=== PATIENT | female | born 1985 | race Caucasian/White ===

== ENCOUNTER 2021-02-13 15:30 | Outpatient (REF) | payer SELFPAY ==
[2021-02-14 08:08] LABS: ~Hepatitis B Surface Antibody REACTIVE (Nonreactive)
[2021-02-16 14:46] LABS: TS Negative Control Passed; TS Panel A 0; TS Panel B 0; TS Positive Control Passed; TSpotTB Negative (SeeBelow)
== END 2021-02-13 15:31 | disposition home or self-care (01) ==
LOC: HO.LNP 15:30
PROVIDERS: Visit Provider Internal Medicine
DX: Z02.1 Encounter for pre-employment examination (principal)
CPT/HCPCS: 86481; 86706; 86735; 86762; 86765; 86787

== ENCOUNTER 2021-07-27 12:49 | Outpatient (REF) | payer OTHER, SELFPAY ==
--- NOTE | ~2021-07-27 | XR_ITS ---
EXAMINATION: XR PELVIS CLINICAL INFORMATION: Low back pain COMPARISON: None TECHNIQUE: AP view of the pelvis. FINDINGS: There is bilateral sacralization of L5 vertebra visualized bilateral hip joints, SI joints and the pelvic bones are unremarkable. There is a IUD noted in the pelvis. The soft tissues are normal. XR/XR pelvis 1-2V IMPRESSION: Bilateral sacralization of L5 vertebra. No other bony abnormality seen.
== END 2021-07-27 12:50 | disposition home or self-care (01) ==
LOC: HO.XRAY 12:49
PROVIDERS: Visit Provider Nurse Practitioner Family
DX: M54.50 Low back pain, unspecified (principal)
CPT/HCPCS: 72170

== ENCOUNTER → 2021-08-09 14:36 | Outpatient (BNVA) | payer OTHER, SELFPAY | PROVIDERS: Visit Provider Nurse Practitioner Family ==

== ENCOUNTER 2021-08-10 07:44 | Outpatient (REF) | payer OTHER, SELFPAY ==
[2021-08-10 08:07] LABS: MANUAL DIFF FLAG NO
[2021-08-10 08:16] LABS: Basophils Absolute Auto 0.1 X10*3/uL (0.0-0.2); Basophils Percent Auto 1.5 % (0-2); Eosinophils Absolute Auto 0.1 X10*3/uL (0.0-0.4); Hematocrit 39.7 % (37.0-47.0); Imm Gran Abs Auto 0.01 X10*3/uL (0.00-0.03); Imm Gran Pct Auto 0.2 % (0.0-0.4); Lymphocytes Absolute Auto 1.7 X10*3/uL (1.2-4.9); Lymphocytes Percent Auto 28.1 % (20-40); Mean Corpuscular HGB Conc 32.7 g/dl (31.0-35.0); Mean Corpuscular Hemoglobin 29.1 pg (27.0-33.0); Mean Corpuscular Volume 88.8 fL (80.0-98.0); Mean Platelet Volume 9.7 fL (9.4-12.3); Monocytes Absolute Auto 0.4 X10*3/uL (0.1-1.2); Monocytes Percent Auto 6.1 % (2-11); Neutrophils Absolute Auto 3.8 x10*3/uL (2.0-8.3); Neutrophils Percent Auto 62.1 % (45-73); Platelet Count 265 X10*3/uL (160-400); Red Blood Count 4.47 X10*6/uL (4.20-5.50); Red Cell Distribution Width 12.5 % (11.0-16.0); White Blood Count 6.1 X10*3/uL (4.8-10.8)
[2021-08-10 08:53] LABS: Anion Gap 11 (12-20); Blood Urea Nitrogen 13 mg/dL (9-16); Calcium 9.6 mg/dL (8.4-10.2); Carbon Dioxide 27 mmol/L (22-29); Chloride 104 mmol/L (96-108); Cholesterol 169 mg/dL; Estimated Glomerular Filt Rate > 60; Glucose Fasting 100 mg/dL (60-99); HDL Cholesterol 62 mg/dL; LDL Cholesterol Calculated 95 mg/dl; Potassium 4.6 mmol/L (3.3-5.1); Sodium 137 mmol/L (135-145); Triglycerides 62 mg/dL
[2021-08-10 09:15] LABS: Thyroid Stimulating Hormone 0.91 uIU/mL (0.32-4.0)
[2021-08-10 09:16] LABS: TSH reflex Free T4 0.92 uIU/mL (0.32-4.0)
== END 2021-08-10 07:45 | disposition home or self-care (01) ==
LOC: HO.LAB 07:44
PROVIDERS: Visit Provider Nurse Practitioner Family
DX: Z01.818 Encounter for other preprocedural examination (principal); R53.83 Other fatigue
CPT/HCPCS: 36415; 80048; 80061; 84443; 85025

== ENCOUNTER 2021-08-10 16:29 | Outpatient (REF) | payer OTHER, SELFPAY ==
--- NOTE | ~2021-08-10 | MR_ITS ---
EXAMINATION: MR LUMBAR SPINE WITHOUT CONTRAST CLINICAL INFORMATION: Low back pain. COMPARISON: No relevant prior imaging. TECHNIQUE: MRI of the lumbar spine was obtained using routine sequences without contrast. FINDINGS: There is transitional spinal anatomy at the lumbosacral junction with partial lumbarization of the S1 vertebral segment. Alignment is normal. Vertebral heights are preserved. No acute bone marrow signal changes. There is disc desiccation at multiple levels without substantial loss of intervertebral disc height. The tip of the conus medullaris is located at L2. No mass effect on the conus. Visualized distal cord signal intensity is normal. At L1-L2, L2-L3, L3-L4, and L4-L5 the annular contours are normal. No canal or neuroforaminal compromise at these 4 levels. At L5-S1 there is a right foraminal annular fissure associated with a slightly bulging disc. No canal stenosis. No mass effect on the traversing or foraminal nerve roots. At S1-S2 the annular contour is normal. No canal or neuroforaminal compromise. Limited visualization of the retroperitoneal anatomy reveals no abnormal finding. Psoas and paraspinal muscle groups are symmetric. MR/MR lumbar spine wo con IMPRESSION: There is transitional spinal anatomy at the lumbosacral junction with partial lumbarization of the S1 vertebral segment. There is mild disc degeneration at L5-S1. Otherwise unremarkable examination. No canal stenosis. No mass effect on the traversing or foraminal nerve roots.
== END 2021-08-10 16:30 | disposition home or self-care (01) ==
LOC: HO.MRI 16:29
PROVIDERS: Visit Provider Nurse Practitioner Family
DX: M54.50 Low back pain, unspecified (principal); M47.27 Other spondylosis with radiculopathy, lumbosacral region; Q76.49 Other congenital malformations of spine, not associated with scoliosis
CPT/HCPCS: 72148

== ENCOUNTER 2022-02-19 07:21 | Outpatient (REF) | payer OTHER, MEDICAID, SELFPAY ==
--- NOTE | ~2022-02-19 | MR_ITS ---
EXAMINATION: MR BRAIN WITHOUT CONTRAST CLINICAL INFORMATION: Migraine without aura. COMPARISON: None available. TECHNIQUE: Multiplanar, multisequence imaging of the brain was performed without intravenous contrast. FINDINGS: The ventricles and sulci have normal size/configuration.?There is no abnormal fluid collection or evidence of intracranial hemorrhage. The signal and morphology of the brain parenchyma are normal. There is no mass effect, midline shift, or basal cistern effacement. The midline structures are normal. There is a fully formed corpus callosum. The cerebellar tonsils terminate above the foramen magnum. The major intracranial flow voids are present. There is minimal mucosal thickening in the paranasal sinuses without fluid levels. The middle ear cavities and mastoid air cells are clear. The orbital contents are unremarkable. MR/MR head/brain wo con IMPRESSION: No compelling imaging explanation for headaches. Specifically, no intracranial mass, hydrocephalus, tonsillar ectopia, or significant paranasal sinus disease.
== END 2022-02-19 07:22 | disposition home or self-care (01) ==
LOC: HO.MRI 07:21
PROVIDERS: Visit Provider Nurse Practitioner Family
DX: G43.109 Migraine with aura, not intractable, without status migrainosus (principal); R20.0 Anesthesia of skin
CPT/HCPCS: 70551

== ENCOUNTER 2022-03-22 15:20 | Outpatient (REF) | payer OTHER, MEDICAID, SELFPAY ==
--- NOTE | ~2022-03-22 | US_ITS ---
EXAMINATION: US EXTRACRANIAL CAROTID DUPLEX, BILATERAL CLINICAL INFORMATION: Anesthesia the skin COMPARISON: None TECHNIQUE: Real-time ultrasound and Doppler techniques (integrating B-mode 2-D vascular images, Doppler spectral analysis and color-flow Doppler imaging) were utilized to interrogate the extracranial carotid arteries, the vertebral arteries and proximal subclavian arteries bilaterally. The degree of stenosis is determined by criteria similar to NASCET. FINDINGS: Right Side: 1. There is no atherosclerotic plaque seen in the bifurcation/proximal ICA region. 2. The common carotid artery PSV proximally is 136 cm/s and distally 102 cm/s. 3. The proximal internal carotid artery velocities are 83 cm/s systolic and 22 cm/s diastolic. 4. The proximal external carotid artery PSV is 78 cm/s. 5. The vertebral artery shows antegrade flow. 6. The subclavian artery waveforms are normal. Left Side: 1. There is no atherosclerotic plaque seen in the bifurcation/proximal ICA region. 2. The common carotid artery PSV proximally is 134 cm/s and distally 89 cm/s. 3. The proximal internal carotid artery velocities are 70 cm/s systolic and 22 cm/s diastolic. 4. The proximal external carotid artery PSV is 75 cm/s. 5. The vertebral artery shows antegrade flow. 6. The subclavian artery waveforms are normal. US/US carotid duplex BI IMPRESSION: 1. RIGHT: Normal right internal carotid artery without atherosclerotic plaque or hemodynamically significant stenosis. 2. LEFT: Normal left internal carotid artery without atherosclerotic plaque or hemodynamically significant stenosis.
== END 2022-03-22 15:21 | disposition home or self-care (01) ==
LOC: HO.US 15:20
PROVIDERS: Visit Provider Nurse Practitioner Family
DX: R20.0 Anesthesia of skin (principal); G43.019 Migraine without aura, intractable, without status migrainosus
CPT/HCPCS: 93880

== ENCOUNTER 2022-07-25 12:13 | Outpatient (REF) | payer OTHER, MEDICAID, SELFPAY ==
--- NOTE | ~2022-07-25 | XR_ITS ---
EXAMINATION: XR lumbar spine 6V w bending CLINICAL INFORMATION: Reason for Exam M47.27 - Other spondylosis with radiculopathy, lumbosacral region COMPARISON: None TECHNIQUE: 5 views of the lumbar spine FINDINGS: Lumbar-type vertebral bodies are present. There is lumbarization of the S1 vertebral body. Vertebral body heights and intervertebral disc spaces are preserved without evidence of subluxation between flexion and extension views. Right upper quadrant cholecystectomy clips. XR/XR lumbar spine 6V w bending IMPRESSION: Lumbarization of the S1 vertebral body. Otherwise, unremarkable radiographs.
== END 2022-07-25 12:14 | disposition home or self-care (01) ==
LOC: HO.XRAY 12:13
PROVIDERS: PCP Hospitalist; Visit Provider Nurse Practitioner Family
DX: M47.27 Other spondylosis with radiculopathy, lumbosacral region (principal)
CPT/HCPCS: 72114

== ENCOUNTER → 2022-07-26 12:22 | Outpatient (BNVA) | payer OTHER, MEDICAID, SELFPAY | PROVIDERS: PCP Hospitalist; Visit Provider Internal Medicine | DX: M79.18 Myalgia, other site (principal) | CPT/HCPCS: 20552 ==

== ENCOUNTER 2022-07-26 12:32 | Emergency (ER) | payer OTHER, MEDICAID, SELFPAY ==
--- NOTE | ~2022-07-26 | CT_ITS ---
EXAMINATION: NONCONTRAST HEAD CT NONCONTRAST MAXILLOFACIAL CT NONCONTRAST CERVICAL SPINE CT INDICATION INFORMATION: Fall with head strike and nasal bruising COMPARISON: Brain MRI 02/19/2022 TECHNIQUE: Separate noncontrast CT examinations of the head, maxillofacial bones, and cervical spine were performed. Coronal and sagittal images were created for each examination at the technologist workstation. This CT examination was performed using dose optimization techniques as appropriate, variously including the following: *Automated exposure control *Adjustment of mA and/or kV according to patient size (this includes techniques or standardized protocols for targeted exams where dose is matched to indication/reason for exam; i.e. extremities or head) *Use of iterative reconstruction technique DLP: 1157 mGy-cm FINDINGS: HEAD: No intra or extra-axial fluid collection, hemorrhage, or mass. No midline shift or herniation. Basal cisterns are patent. Duran-white matter differentiation is maintained. No territorial encephalomalacia.. No hydrocephalus. No significant volume loss. There is no abnormal attenuation within the brain parenchyma. No acute soft tissue abnormality. No calvarial fracture. The mastoid air cells are well aerated. MAXILLOFACIAL: No acute facial bone fractures are seen. The frontal, maxillary, ethmoid, and sphenoid sinuses are well aerated. The mandibular heads are normally positioned in the glenoid fossa. Extensive dental caries involving bilateral maxillary molar teeth. The orbits demonstrate a normal appearance bilaterally. The globes are intact. No evidence of retrobulbar hemorrhage. CERVICAL SPINE: Alignment:Straightening of the normal cervical lordosis. No subluxation. Vertebra:No acute fracture. No prevertebral soft tissue swelling. Degenerative disc disease:No significant. Preserved intervertebral disc heights. Other findings:Visualized lung apices are clear. No cervical lymphadenopathy. Small 0.6 cm hypodense right thyroid nodule. No imaging follow-up recommended given the small size. CT/CT cervical spine wo IV con IMPRESSION: 1. No intracranial hemorrhage, calvarial fracture, or other acute intracranial abnormality. 2. No subluxation or acute facial bone fracture. 3. Extensive dental caries involving bilateral maxillary molar teeth.
[2022-07-26 12:36] VITALS: BP 140/84; PULSE 69; RESP 16; TEMP 36.8; O2SAT 100; BMI 31.7
--- NOTE | 2022-07-26 12:36 | ED.GENADULT ---
HPI - General Adult General Chief complaint: Fall <MATHEW Arana Last Filed: 07/26/22 12:37> Stated complaint: passed out hit head at work <MATHEW Arana Last Filed: 07/26/22 12:37> Time Seen by Provider: 07/26/22 14:20 <MATHEW Arana Last Filed: 07/26/22 12:37> Source: patient <MATHEW Cherry Last Filed: 07/26/22 16:51> Mode of arrival: ambulatory <MATHEW Cherry Last Filed: 07/26/22 16:51> History of Present Illness HPI narrative: 37-year-old female with a past medical history of anemia presenting to the ED complaining of syncopal episode [employer] while obtaining trigger point injections during her lunch break. Patient reports falling forward hitting head/face against wall. Denies taking anticoagulation. Reports pain to nasal bridge and forehead. Denies nausea/vomiting, neck/back pain, numbness/tingling, weakness. Denies symptoms prior to fall <MATHEW Cherry Last Filed: 07/26/22 16:51> Onset (ago): day(s) <MATHEW Cherry Last Filed: 07/26/22 16:51> Related Data Home medications: Previous Rx's Medication Instructions Recorded lidocaine 5 % topical patch 1 patch topical DAILY pain 30 days 08/09/21 #30 ea camphor 3.1 %-methyl salicylate 10 1 patch topical BID PRN pain 30 07/25/22 %-menthol 6 % topical patch days #60 ea (Salonpas) cyclobenzaprine 5 mg tablet 5 mg PO BID PRN muscle spasm 30 07/25/22 days #60 tabs <MATHEW Arana Last Filed: 07/26/22 12:37> Allergies/adverse reactions: Allergies Allergy/AdvReac Type Severity Reaction Status Date / Time No Known Allergies Allergy Verified 07/26/22 12:36 <MATHEW Arana Last Filed: 07/26/22 12:37> Review of Systems Review of Systems: Constitutional: No Fever, No Chills, No Fatigue, No Malaise ENT/Mouth: +facial pain, No Ear Pain, No sore throat, No Rhinorrhea, No Swallowing Difficulty Eyes: No Eye Pain, No Vision Changes Cardiovascular: No Chest Pain, No SOB, No Palpitations Respiratory: No Cough, No Sputum, No Dyspnea Gastrointestinal: No Nausea, No Vomiting, No Diarrhea, No Constipation, No Abdominal pain Genitourinary: No Dysuria, No Hematuria, No Urinary Incontinence/retention, No Flank Pain Musculoskeletal: + joint pain, No Myalgias, No Joint Swelling Skin: + Skin Lesions, No rash Neuro: No Weakness, No Numbness, No Paresthesias, + Loss of Consciousness, No Dizziness, + Headache <MATHEW Cherry - Last Filed: 07/26/22 16:51> Yes all other systems are reviewed and are negative <MATHEW Cherry - Last Filed: 07/26/22 16:51> Constitutional: Constitutional: Reports as per HPI <MATHEW Cherry - Last Filed: 07/26/22 16:51> Neurologic: Denies Abnormal speech present <MATHEW Cherry - Last Filed: 07/26/22 16:51> [facility] Past Medical History Attestation statement: The following information was validated with the patient. <MATHEW Cherry - Last Filed: 07/26/22 16:51> Medical History: Medical History History of anemia <MATHEW Arana - Last Filed: 07/26/22 12:37> Social History Social History: Social History Housing: House Patient Tobacco Use Status: Never used Tobacco e-Cigarette/Vaping Use: Never Used Advance Directives: No Advance Directives Information Provided: No <MATHEW Arana - Last Filed: 07/26/22 12:37> Physical Exam ED Vital Signs: Vital Signs - 24 hr 07/26/22 12:36 Temperature 98.2 F Pulse Rate 69 Respiratory Rate 16 Blood Pressure 140/84 H Pulse Oximetry 100 Oxygen Delivery Method Room Air BMI result Body Mass Index 31.7 <MATHEW Arana - Last Filed: 07/26/22 12:37> Vital Signs - 24 hr 07/26/22 12:36 Temperature 98.2 F Pulse Rate 69 Respiratory Rate 16 Blood Pressure 140/84 H Pulse Oximetry 100 Oxygen Delivery Method Room Air BMI result Body Mass Index 31.7 <MATHEW Cherry - Last Filed: 07/26/22 16:51> Const General: cooperative, healthy appearing, comfortable and no acute distress <MATHEW Cherry - Last Filed: 07/26/22 16:51> Orientation/consciousness: patient oriented x3 <MATHEW Cherry - Last Filed: 07/26/22 16:51> Limitations: no limitations <MATHEW Cherry - Last Filed: 07/26/22 16:51> HENMT Other: + small superficial closed abrasion to forehead. No active bleeding + erythema/small bruising to nasal bridge with tenderness to palpation. No septal hematoma. No deformity. No trismus <MATHEW Cherry - Last Filed: 07/26/22 16:51> Head: Yes normal to inspection and Yes atraumatic <MATHEW Cherry - Last Filed: 07/26/22 16:51> Ears: hearing grossly normal bilaterally <MATHEW Cherry - Last Filed: 07/26/22 16:51> General nose exam: Normal external nose present <MATHEW Cherry - Last Filed: 07/26/22 16:51> Face and sinus: Yes normal facial exam <MATHEW Cherry - Last Filed: 07/26/22 16:51> Mouth: Normal oral and palatal mucosa present <MATHEW Cherry - Last Filed: 07/26/22 16:51> Throat: Yes posterior oropharynx normal, Yes tonsils normal and Yes uvula midline <MATHEW Cherry - Last Filed: 07/26/22 16:51> Eyes General: appearance normal, both eyes and all related structures <MATHEW Cherry - Last Filed: 07/26/22 16:51> Pupils: Equal, round and reactive pupils present <MATHEW Cherry - Last Filed: 07/26/22 16:51> EOM: EOMs intact bilaterally <MATHEW Cherry - Last Filed: 07/26/22 16:51> Neck Other: No midline cervical spinous tenderness <Amanda Starksdanielt, PA - Last Filed: 07/26/22 16:51> Neck: Yes normal visual inspection and Yes no meningeal signs <Amanda Pouldanielt PA - Last Filed: 07/26/22 16:51> Resp Effort & Inspection: normal respiratory effort and no respiratory distress <Amanda Pouldanielt, PA - Last Filed: 07/26/22 16:51> Auscultation: clear to auscultation bilaterally <Amanda Pouldanielt, PA - Last Filed: 07/26/22 16:51> Cardio Rate: regular rate <Amanda Pouldanielt, PA - Last Filed: 07/26/22 16:51> Heart sounds: S1 normal heart sound present and S2 normal heart sound present <Amanda Pouldanielt, PA - Last Filed: 07/26/22 16:51> Back/Spine/Pelvis Other: No midline thoracic/lumbar spinous tenderness/step-off or deformity <Amanda Pouldanielt PA - Last Filed: 07/26/22 16:51> Skin Rashes: no rashes <Amanda Pouldanielt, PA - Last Filed: 07/26/22 16:51> Wounds: no wounds <Amanda Pouldanielt, PA - Last Filed: 07/26/22 16:51> Neuro General: patient oriented x3, gait normal, tone normal, moves all extremities, no meningeal signs, no focal motor deficits and CN's II-XI intact bilaterally <Amanda Terezapriya, PA - Last Filed: 07/26/22 16:51> Cranial nerves: Yes CN's II-XII intact bilaterally and Yes Equal, round and reactive pupils present <Amanda Pouliot, PA - Last Filed: 07/26/22 16:51> Cognition (Neuro): normal cognition <Amanda Pouliot, PA - Last Filed: 07/26/22 16:51> Speech: No Abnormal speech present <Amanda Pouldanielt, PA - Last Filed: 07/26/22 16:51> Gait exam (Neuro): Normal gait present <Amanda Pouldanielt, PA - Last Filed: 07/26/22 16:51> Motor exam (neuro): 5/5 motor strength present throughout <Amanda Pouldanielt, PA - Last Filed: 07/26/22 16:51> Extrem General: Yes normal to inspection <MATHEW Cherry Last Filed: 07/26/22 16:51> Course Course Course Narrative: RME performed by Makayla Hull PA-C. Patient is a 37 year old female, [employer] [place] employee, who was receiving a trigger point injection when she passed out and hit her head and face. Patient denies any anticoagulation use. Patient has a small abrasion to the right frontal scalp with no active bleeding. Patient's bridge of her nose is mildly erythematous and bruising. CT head and face ordered. Patient placed in the waiting room pending results and room availability. <MATHEW Arana Last Filed: 07/26/22 12:37> RME performed by Makayla Hull PA-C. Patient is a 37 year old female, [employer] [facility] [place] employee, who was receiving a trigger point injection when she passed out and hit her head and face. Patient denies any anticoagulation use. Patient has a small abrasion to the right frontal scalp with no active bleeding. Patient's bridge of her nose is mildly erythematous and bruising. CT head and face ordered. Patient placed in the waiting room pending results and room availability. 1550--CT head/brain wo IV con/CT cervical spine wo IV con/CT facial bones wo IV con IMPRESSION: 1.? No intracranial hemorrhage, calvarial fracture, or other acute intracranial abnormality. 2.? No subluxation or acute facial bone fracture. 3.? Extensive dental caries involving bilateral maxillary molar teeth. ? Results discussed with patient including worrisome signs and symptoms and strict return precautions, and when to return to the emergency department. They verbalized understanding and feel safe for discharge at this time. <MATHEW Cherry Last Filed: 07/26/22 16:51> Medications Administered Discontinued Medications Generic Name Dose Route Start Last Admin Trade Name Freq PRN Reason Stop Dose Admin Acetaminophen 650 mg 07/26/22 15:15 07/26/22 15:28 Acetaminophen 325 Mg Tablet PO 07/26/22 15:16 650 mg ONCE ONE Administration <MATHEW Arana Last Filed: 07/26/22 12:37> Medications Administered Discontinued Medications Generic Name Dose Route Start Last Admin Trade Name Freq PRN Reason Stop Dose Admin Acetaminophen 650 mg 07/26/22 15:15 07/26/22 15:28 Acetaminophen 325 Mg Tablet PO 07/26/22 15:16 650 mg ONCE ONE Administration <MATHEW Cherry - Last Filed: 07/26/22 16:51> Medical Decision Making Medical Decision Making MDM Narrative: 37-year-old female with a past medical history of anemia presenting to the ED complaining of syncopal episode [employer] while obtaining trigger point injections during her lunch break. On exam vital signs stable, NAD, nontoxic appearing, physical exam as above. Concern for base of ankle syncope due to injections & concussion vs facial bone fracture. Lower suspicion for ICH, ACS or PE Plan: EKG, Head/C-spine/facial bone CT <MATHEW Cherry - Last Filed: 07/26/22 16:51> Differential Diagnosis Differential Diagnoses: The differential diagnosis associated with the presentation includes <MATHEW Cherry - Last Filed: 07/26/22 16:51> As above <MATHEW Cherry - Last Filed: 07/26/22 16:51> Independent Interpretation I performed an independent interpretation of an: EKG <MATHEW Cherry - Last Filed: 07/26/22 16:51> Interpretation: My interpretation EKG is normal sinus rhythm with sinus arrhythmia at a rate of 68. QRS 84. QTC 414. No STEMI <MATHEW Cherry - Last Filed: 07/26/22 16:51> Radiology Impression Discussion of test interpretation with radiology: I have reviewed the radiologist's reading. <MATHEW Cherry Last Filed: 07/26/22 16:51> Prescription Management I considered prescription management with: Pain Medication <MATHEW Cherry - Last Filed: 07/26/22 16:51> Discharge Plan Discharge Clinical Impression: Syncope, Head injury <MATHEW Arana Last Filed: 07/26/22 12:37> Patient Disposition: Home, Self-Care <MATHEW Arana Last Filed: 07/26/22 12:37> Instructions: Syncope (ED), Head Injury (ED) <MATHEW Arana Last Filed: 07/26/22 12:37> Additional Instructions: Her CT scans are unremarkable. Ice your face. Take Tylenol /Motrin as needed. You likely have a mild concussion. Practice brain rest. Avoid bright lights, excessive screen time If you develop constant worsening headache, persistent nausea/vomiting, weakness, or vision changes return to the emergency department <MATHEW Arana - Last Filed: 07/26/22 12:37> Prescriptions: No Action cyclobenzaprine 5 mg tablet 5 mg PO BID PRN (Reason: muscle spasm) 30 Days Qty: 60 3RF Salonpas 3.1-10-6 % adhesive patch,medicated 1 patch topical BID PRN (Reason: pain) 30 Days Qty: 60 1RF Rx Instructions: may leave on area for up to 8 hrs lidocaine 5 % adhesive patch,medicated 1 patch topical DAILY 30 Days Qty: 30 3RF Rx Instructions: leave on most affected area for up to 12 hours per day. <AMTHEW Arana - Last Filed: 07/26/22 12:37> Referrals: Danisha العلي NP [Primary Care Provider] - 1 week <MATHEW Arana - Last Filed: 07/26/22 12:37> Interventions: ED Discharge Assessment Last Done: 07/26/22 16:36 <MATHEW Arana - Last Filed: 07/26/22 12:37> Discharge Date/Time: 07/26/22 16:37 <MATHEW Arana - Last Filed: 07/26/22 12:37>
[2022-07-26] MEDS: Acetaminophen 325 MG TABLET 650 MG PO (15:28)
--- NOTE | 2022-07-26 15:49 | ECG_ITS ---
Test Reason : FALL Blood Pressure : / mmHG Vent. Rate : 068 BPM Atrial Rate : 068 BPM P-R Int : 156 ms QRS Dur : 084 ms QT Int : 390 ms P-R-T Axes : 041 029 013 degrees QTc Int : 414 ms Normal sinus rhythm with sinus arrhythmia Nonspecific T wave abnormality Abnormal ECG No previous ECGs available Referred By: Amanda Morgan Electronically Signed By:KALEY CLOUD
== END 2022-07-26 16:37 | disposition home or self-care (01) ==
PROVIDERS: Emergency Provider Student in an Organized Health Care Education/Training Program; PCP Hospitalist
DX: R55 Syncope and collapse (principal); R51.9 Headache, unspecified; M54.2 Cervicalgia; Z79.899 Other long term (current) drug therapy
CPT/HCPCS: 70450; 70486; 72125; 93005; 99283; 99284

== ENCOUNTER 2023-05-23 14:56 | Outpatient (REF) | payer OTHER, MEDICAID, SELFPAY ==
[2023-05-23 15:31] LABS: MANUAL DIFF FLAG NO
[2023-05-23 15:42] LABS: Basophils Absolute Auto 0.1 X10*3/uL (0.0-0.2); Basophils Percent Auto 0.9 % (0-2); Eosinophils Absolute Auto 0.2 X10*3/uL (0.0-0.4); Eosinophils Percent Auto 1.8 % (0-4); Hematocrit 37.8 % (37.0-47.0); Hemoglobin 12.9 g/dl (12.0-16.0); Imm Gran Abs Auto 0.04 X10*3/uL (0.00-0.03); Imm Gran Pct Auto 0.4 % (0.0-0.4); Lymphocytes Absolute Auto 2.4 X10*3/uL (1.2-4.9); Lymphocytes Percent Auto 21.1 % (20-40); Mean Corpuscular HGB Conc 34.1 g/dl (31.0-35.0); Mean Corpuscular Hemoglobin 29.3 pg (27.0-33.0); Mean Corpuscular Volume 85.7 fL (80.0-98.0); Mean Platelet Volume 9.2 fL (9.4-12.3); Monocytes Absolute Auto 0.5 X10*3/uL (0.1-1.2); Monocytes Percent Auto 4.5 % (2-11); Neutrophils Percent Auto 71.3 % (45-73); Platelet Count 285 X10*3/uL (160-400); Red Blood Count 4.41 X10*6/uL (4.20-5.50); Red Cell Distribution Width 12.2 % (11.0-16.0); White Blood Count 11.2 X10*3/uL (4.8-10.8)
[2023-05-24 04:39] LABS: Syphilis Screen Nonreactive (Nonreactive)
[2023-05-27 15:22] LABS: Anti Nuclear Antibody Screen NEGATIVE (NEGATIVE)
[2023-05-29 11:29] LABS: Neutrophil Cyto Ab Screen NEGATIVE (NEGATIVE)
[2023-05-30 15:34] LABS: HLA B27 Negative (Negative)
== END 2023-05-23 14:57 | disposition home or self-care (01) ==
LOC: HO.LAB 14:56
PROVIDERS: Visit Provider Specialist
DX: H15.103 Unspecified episcleritis, bilateral (principal)
CPT/HCPCS: 36415; 85025; 86036; 86038; 86780; 86812

== ENCOUNTER 2023-06-06 09:31 | Outpatient (AMB) | payer OTHER, MEDICAID, SELFPAY ==
[2023-06-06 09:32] VITALS: BP 135/87; PULSE 69; RESP 16; O2SAT 98; BMI 31.2
--- NOTE | 2023-06-06 09:32 | MHC.OFFVIS ---
Intake Vital Signs 06/06/23 09:32 Height 5 ft 1 in Weight 165 lb BMI 31.2 BP 135/87 Blood Pressure Location Rt brachial Position Sitting Respiration 16 Pulse 69 Pulse Source Pulse Oximeter Pulse Oximetry (%) 98 Oxygen Delivery Method Room Air Intake Visit Reasons: Back pain, R leg numbness Allergies No Known Allergies Allergy (Verified 07/26/22 12:36) HPI HPI Comments History of Present Illness Details Patient presents today for follow up with worsening chronic low back pain and right leg numbness. Denies any recent trauma, injury or falls. Patient reports increased right leg numbness in her anterior thigh and griffin with intermittent tingling and numbness in her right big toe for several weeks but progressively worsening for the past 3 days. Prolonged standing or walking, bending increases her pain. It also interferes with her daily functioning and sleep. She has tried to manage her symptoms with gentle stretching and regular home exercise program, NSAIDs, Tylenol, cyclobenzaprine, heating pad, over the counter topical applications without any relief. Denies any fever, abdominal or groin pain, foot drop, bladder or bowel dysfunction or saddle anesthesia. PRIOR: Patient returns today for follow up visit with new symptoms of intermittent bilateral upper extremity numbness and tingling and worsening chronic daily headaches for the past 6 months. She reports headaches are moderate to severe in intensity and lasting over 15 days per month which significantly affect her daily functioning, activities and sleep. Patient was last seen in our office in July for lower back pain at which time we obtained pelvic xray and followed up with lumbar spine MRI which was reviewed with patient previously. She reports bilateral upper extremity numbness and tingling with associated dizziness, headaches and cold sensations in her hands were more prominent in her right arm since last week and these symptoms have been alternating between her left and right side this week. Denies any trauma, injury or falls. Pain described as constant daily aching, pressure, throbbing, and pulsating in front regions with associated dizziness, fatigue, muscle aches, intermittent neck stiffness and spasms, mood changes, sensitivity to light and noises, nausea, visual disturbances such as peripheral side vision sparkles and glitters with severe headaches. She reports her severe headaches are mostly right sided and stress or tension related headaches are bilateral. Patient denies being diagnosed with migraine headaches before. Patient has been trying to manage her headaches with Ibuprofen, Advil, muscle relaxants, deeming or turning bright lights off during the day or use dark room for severe headaches with minimal improvement. She denies smoking tobacco or taking marijuana, does not drink red wine but occasionally will have white or Ramonita rogelio, rarely eats cheese, and regularly eats chocolate. She notes that muscle relaxant improves her sleep and she maintains adequate hydration daily in combination with daily physical activity. Patient denies any fever, chills, malaise, chest pain or pressure, shortness of breaths, vomiting, abdominal pain, bowel or bladder dysfunction, or saddle anesthesia. PRIOR: Patient is a very pleasant 36 year old female/male who presents to the office with chronic back pain. Her pain is mostly axial but reports pain radiates posteriorly down to her buttocks and to her left lower extremity with occasional numbness and tingling. The pain started about 1.5 years ago without any inciting event. Denies previous back surgery or injections, trauma, injury, or fall. She has tried Tylenol, Ibuprofen, diclofenac and heating pads with continued symptoms. Movements and prolong walking or standing exacerbate her pain. Pain is interfering with her sleep, activities of daily living, mood, quality of life and she cannot function normally. She describes her pain as stabbing, pinching, tugging, pulling, hurting, piercing, and squeezing. She has not tried physical therapy, chiropractic manipulation, massage, acupuncture or TENS unit in the past but currently cannot tolerate formal PT due to increasing and significant pain. She reports she usually maintains active lifestyle with daily walking and HEP. Patient denies any fever, abdominal or groin pain, dizziness, malaise, bladder/bowel dysfunction or saddle anesthesia. She reports intermittent weakness. Patient had recent imaging of her pelvis that showed bilateral sacralization of L5 vertebra. [facility] Medical History (Updated 06/06/23 @ 10:27 by MERNA Tesfaye) Migraine without aura, intractable, without status migrainosus Sacralization of lumbar vertebra History of anemia Surgical History (Updated 06/06/23 @ 10:27 by MERNA Tesfaye) Hx laparoscopic cholecystectomy (~2006) Social History Housing: House Patient Tobacco Use Status: Never used Tobacco e-Cigarette/Vaping Use: Never Used Female Reproductive History Menstrual Age of Menarche: 14 control method: other (Mirena IUD) Review of Systems Const All systems reviewed & are unremarkable except as noted in HPI and below Denies body aches, Denies chills, Denies fatigue, Denies fever(s), Denies frequent falls, Reports headache(s), Denies malaise, Denies night sweats and Reports weakness (right leg numbness and weakness) ENT Reports Normal hearing present, Reports headache(s) and Reports neck pain Musc Reports as per HPI, Reports back pain, Denies myalgias, Denies arthralgias, Reports neck pain, Reports numbness, Reports radiating pain into limb, Reports stiffness and Reports tingling Neuro Reports Normal hearing present, Denies confusion, Denies frequent falls, Reports headache(s), Reports numbness, Reports Sensory deficit (Neuro) (decreased sensation right anterior thigh), Reports tingling and Reports weakness (right leg numbness and weakness) Psych Denies confusion Endo Denies fatigue Physical Exam Const General: cooperative, healthy appearing, no acute distress, alert, awake and well groomed; No confusion Orientation/consciousness: patient oriented x3 and No confusion Limitations: no limitations HEENT Head: Yes normal to inspection, Yes No palpable skull fracture present, Yes normocephalic and Yes atraumatic Ears: hearing grossly normal bilaterally General nose exam: No nasal discharge present Face and sinus: Yes normal facial exam, Yes sinuses nontender and Yes face symmetric Eyes General: appearance normal, both eyes and all related structures Neck Neck: Yes normal visual inspection, Yes no lymphadenopathy, Yes supple, No anterior neck swelling and Yes no JVD Resp Effort & Inspection: normal respiratory effort, able to speak in complete sentences, no audible wheezes, no cough and symmetric chest movement Cardio Jugular venous distension: no JVD Rate: regular rate Bruits: no carotid bruits Peripheral pulses: radial pulses present, posterior tibial pulses present and dorsalis pedis present GI Inspection: Yes normal to inspection and No distended Palpation (GI): Soft to palpation and nontender General: Yes no CVA tenderness Back/Spine/Pelvis Other: Lumbar extension does not reproduce pain. Lumbar flexion and bending reproduces mild low back pain and increased right leg numbness. Back: no CVA tenderness Cervical Spine: normal cervical lordosis, cervical ROM normal, cervical muscular tenderness and No Cervical spine tenderness Thoracic/Lumbar Spine: thoracic and lumbar spine normal to inspection, No Thoracic/lumbar spine scar(s), Lasegue's sign positive on the right and localized (L4-L5 distribution), pain with thoraco-lumbar ROM, paraspinal muscle tenderness, No thoracic spinal tenderness, lumbar spinal tenderness at L4 and at L5 and straight leg raise positive right at 40 degrees and at 50 degrees Pelvis: no buttock tenderness Sacroiliac joints: bilaterally nontender Skin General skin exam: no rashes or lesions noted Neuro General: patient oriented x3, tone normal, moves all extremities, Normal light touch and pain sensation, no focal motor deficits, CN's II-XI intact bilaterally and No confusion Cranial nerves: Yes CN's II-XII intact bilaterally, Yes Bilaterally intact EOM present, Yes Midline tongue present and Yes Normal hearing present Cognition (Neuro): normal cognition Gait exam (Neuro): Normal gait present and No Assistive device used Motor exam (neuro): 5/5 motor strength present throughout, no tremor noted, Normal motor muscle tone present throughout and Motor abnormalities not present Sensory Exam: Sensory deficit (Neuro) (decreased sensation right anterior thigh) Deep tendon reflexes (DTR's): Right patellar reflex intensity grade: 1+, Left patellar reflex intensity grade: 2+, Right ankle reflex intensity grade: 2+ and Left ankle reflex intensity grade: 2+ Coordination: Romberg test negative Extrem General: Yes capillary refill normal, Yes no clubbing, cyanosis or edema and Yes no calf tenderness Right lower extremity: hip/thigh Details: normal to inspection; no tenderness, no swelling and no unusual warmth and knee Details: normal to inspection and normal ROM; no tenderness Psych Appearance: grossly normal and well kempt Mental Status: mental status grossly normal Speech and movement: Normal speech and movement present and Clear speech present Affect: normal affect Attitude: cooperative Thought process: Normal thought process present Thought content: Normal thought content present Insight: Good insight present (Psych) Judgement: Good judgement present (Psych) Results Reviewed Results Reviewed: XR PELVIS 07/27/21 CLINICAL INFORMATION: Low back pain? COMPARISON: None? TECHNIQUE: AP view of the pelvis. FINDINGS: There is bilateral sacralization of L5 vertebra visualized bilateral hip joints, SI joints and the pelvic bones are unremarkable. There is a IUD noted in the pelvis. The soft tissues are normal.? IMPRESSION: Bilateral sacralization of L5 vertebra. No other bony abnormality seen. MR LUMBAR SPINE WITHOUT CONTRAST 08/10/21 CLINICAL INFORMATION: Low back pain. FINDINGS: There is transitional spinal anatomy at the lumbosacral junction with partial lumbarization of the S1 vertebral segment. Alignment is normal. Vertebral heights are preserved. No acute bone marrow signal changes. There is disc desiccation at multiple levels without substantial loss of intervertebral disc height. The tip of the conus medullaris is located at L2. No mass effect on the conus. Visualized distal cord signal intensity is normal. At L1-L2, L2-L3, L3-L4, and L4-L5 the annular contours are normal. No canal or neuroforaminal compromise at these 4 levels. At L5-S1 there is a right foraminal annular fissure associated with a slightly bulging disc. No canal stenosis. No mass effect on the traversing or foraminal nerve roots. At S1-S2 the annular contour is normal. No canal or neuroforaminal compromise. Limited visualization of the retroperitoneal anatomy reveals no abnormal finding. Psoas and paraspinal muscle groups are symmetric. IMPRESSION: There is transitional spinal anatomy at the lumbosacral junction with partial lumbarization of the S1 vertebral segment. There is mild disc degeneration at L5-S1. Otherwise unremarkable examination. No canal stenosis. No mass effect on the traversing or foraminal nerve roots. Assessment & Plan Assessment & Plan (1) Sacralization of lumbar vertebra: Code(s): Q76.49 - Other congenital malformations of spine, not associated with scoliosis (2) Lumbosacral spondylosis with radiculopathy: Code(s): M47.27 - Other spondylosis with radiculopathy, lumbosacral region (3) Low back pain: Code(s): M54.50 - Low back pain, unspecified (4) Numbness and tingling of right leg: Code(s): R20.0 - Anesthesia of skin; R20.2 - Paresthesia of skin Plan Patient with chronic low back pain that has been worsening and now with right sided radiculopathy in right L4-L5. Her back pain is function and mobility limiting and has been resistant to conservative treatments. We will update lumbar MRI to assess for neural integrity and compression for potential interventional options to alleviate her right sided radicular back pain. Continue NSAIDs, Tylenol, muscle relaxant, heat/ice therapy, gentle stretching and activity modifications. All questions answered and patient agreed with the plan. Follow up for MRI results and sooner as needed. Orders: Orders MR lumbar spine wo con Today M47.27 - Other spondylosis with radiculopathy, lumbosacral region, M54.50 - Low back pain, unspecified, R20.0 - Anesthesia of skin, R20.2 - Paresthesia of skin Coding Level of Care Code Est Pt Level 3 (48500) Diagnoses Sacralization of lumbar vertebra Q76.49 Lumbosacral spondylosis with radiculopathy M47.27 Low back pain M54.50 Numbness and tingling of right leg R20.0; R20.2
== END 2023-06-06 09:50 | disposition home or self-care (01) ==
LOC: HO.PMC 09:31
PROVIDERS: PCP Hospitalist; Visit Provider Nurse Practitioner Family
DX: Q76.49 Other congenital malformations of spine, not associated with scoliosis (principal); M47.27 Other spondylosis with radiculopathy, lumbosacral region; M54.50 Low back pain, unspecified; R20.0 Anesthesia of skin; R20.2 Paresthesia of skin
CPT/HCPCS: 99213

== ENCOUNTER → 2023-06-06 09:31 | Outpatient (BNVA) | payer OTHER, MEDICAID, SELFPAY | PROVIDERS: PCP Hospitalist; Visit Provider Nurse Practitioner Family ==

== ENCOUNTER 2023-06-09 12:50 | Outpatient (REF) | payer OTHER, MEDICAID, SELFPAY | END 2023-06-09 12:51 | disposition home or self-care (01) | LOC: HO.MRI 12:50 | PROVIDERS: PCP Hospitalist; Visit Provider Nurse Practitioner Family | DX: M47.27 Other spondylosis with radiculopathy, lumbosacral region (principal); M54.50 Low back pain, unspecified; R20.0 Anesthesia of skin; R20.2 Paresthesia of skin | CPT/HCPCS: 72148 ==

== ENCOUNTER 2023-06-12 11:33 | Outpatient (REF) | payer OTHER, MEDICAID, SELFPAY ==
[2023-06-12 13:22] LABS: TSH reflex Free T4 1.01 uIU/mL (0.32-4.0)
[2023-06-13 23:38] LABS: Triiodothyronine T3 Free 3.4 pg/mL (2.3-4.2)
== END 2023-06-12 11:34 | disposition home or self-care (01) ==
LOC: HO.LAB 11:33
PROVIDERS: PCP Hospitalist; Visit Provider Nurse Practitioner Family
DX: E04.1 Nontoxic single thyroid nodule (principal); E66.9 Obesity, unspecified
CPT/HCPCS: 36415; 84443; 84481

== ENCOUNTER 2023-07-03 14:16 | Outpatient (REF) | payer OTHER, MEDICAID, SELFPAY ==
--- NOTE | ~2023-07-03 | US_ITS ---
EXAMINATION: US THYROID CLINICAL INFORMATION: Nontoxic single thyroid nodule. Small 0.6 cm hypodense right thyroid nodule per cervical spine CT scan in early 2022. COMPARISON: CT cervical spine 07/26/2022. TECHNIQUE: Linear transducer alcazar-scale and color Doppler examination with attention to the region of the thyroid. FINDINGS: SIZE: Measurements of the thyroid lobes and nodules are given in sagittal, anteroposterior and transverse dimensions respectively. Right Thyroid Lobe: 5.2 x 1.9 x 1.8 cm, volume 9.1 mL. Parenchyma: The gland echotexture is homogeneous. Thyroid vascularity is normal. Left Thyroid Lobe: 5.2 x 1.6 x 1.5 cm, volume 6.4 mL. Parenchyma: The gland echotexture is homogeneous. Thyroid vascularity is normal. Isthmus: 0.17 cm in maximum AP dimension. Estimated total number of nodules greater than or equal to 1 cm: 0. Medical Detailist nodules are described as follows: 1. Location: Right superior. Size: 0.30 x 0.29 x 0.38 cm, volume 0.017 mL. Nodule characteristics: Composition: Mixed cystic and solid (1). Echogenicity: Hypoechoic (2). Shape: Not taller than wide (0). Margins: Smooth (0). Echogenic Foci: None (0). ACR TI-RADS total points: 3 ACR TI-RADS category: 3 2. Location: Right mid. Size: 0.9 x 0.8 x 1.4 cm, volume 0.54 mL. Nodule characteristics: Composition: Solid/almost completely solid (2). Echogenicity: Hypoechoic (2). Shape: Not taller than wide (0). Margins: Smooth (0). Echogenic Foci: None (0). ACR TI-RADS total points: 4 ACR TI-RADS category: 4 3. Location: Left mid. Size: 0.35 x 0.24 x 0.37 cm, volume 0.016 mL. Nodule characteristics: Composition: Cystic(0). Echogenicity: Anechoic (0). Shape: Not taller than wide (0). Margins: Smooth (0). Echogenic Foci: None (0). ACR TI-RADS total points: 0 ACR TI-RADS category: 1 4. Location: Left mid. Size: 0.40 x 0.27 x 0.44 cm, volume 0.025 mL. Nodule characteristics: Composition: Mixed cystic and solid (1). Echogenicity: Hypoechoic (2). Shape: Not taller than wide (0). Margins: Smooth (0). Echogenic Foci: None (0). ACR TI-RADS total points: 3 ACR TI-RADS category: 3 NODES: No lymphadenopathy is seen in the tissue surrounding the thyroid gland. US/US thyroid IMPRESSION: Mildly enlarged homogeneous thyroid gland with multiple subcentimeter thyroid nodules. No imaging follow-up is recommended. ACR TI-RADS RECOMMENDATION REFERENCE: Ultrasound-guided fine-needle aspiration, followup ultrasound, no further follow up. * TR1 (0 point) and TR2 (2 points): No FNA or follow up. * TR3 (3 points): FNA if more than or equal to 2.5 cm in maximum dimension, followup ultrasound in 1, 3 and 5 years if 1.5 to 2.4 cm in maximum dimension. * TR4 (4-6 points): FNA if more than or equal to 1.5 cm in maximum dimension, followup ultrasound in 1, 2, 3 and 5 years if 1 to 1.4 cm in maximum dimension. * TR5 (more than or equal to 7 points): FNA if more than or equal to 1 cm in maximum dimension, followup ultrasound every year for 5 years if 0.5 to 0.9 cm in maximum dimension. * TR3, TR4 or TR5 nodules that are below the size threshold for followup receive no follow up.
== END 2023-07-03 14:17 | disposition home or self-care (01) ==
LOC: HO.US 14:16
PROVIDERS: PCP Hospitalist; Visit Provider Nurse Practitioner Family
DX: E04.1 Nontoxic single thyroid nodule (principal)
CPT/HCPCS: 76536

== ENCOUNTER 2023-11-04 11:31 | Outpatient (REF) | payer OTHER, MEDICAID, SELFPAY ==
--- NOTE | ~2023-11-04 | XR_ITS ---
EXAMINATION: XR CERVICAL SPINE CLINICAL INFORMATION: Spondylosis without myelopathy or radiculopathy, cervical region COMPARISON: None available. TECHNIQUE: 5 views of the cervical spine, inclusive of oblique views, were obtained. FINDINGS: There is straightening of the usual cervical lordosis which can be seen with muscle spasm or be due to patient positioning. No intrinsic bony abnormality. The disc heights and neural foramina are well maintained. The endplates and posterior elements are normal. No fracture or subluxation. The surrounding prevertebral soft tissues are unremarkable. XR/XR cervical spine min 6V IMPRESSION: There is straightening of the usual cervical lordosis which can be seen with muscle spasm or be due to patient positioning.
== END 2023-11-04 11:32 | disposition home or self-care (01) ==
LOC: HO.XRAY 11:31
PROVIDERS: Visit Provider Nurse Practitioner Family
DX: M47.812 Spondylosis without myelopathy or radiculopathy, cervical region (principal); M54.12 Radiculopathy, cervical region; R20.0 Anesthesia of skin; R20.2 Paresthesia of skin
CPT/HCPCS: 72052

== ENCOUNTER 2024-06-14 11:11 | Outpatient (REF) | payer OTHER, MEDICAID, SELFPAY ==
[2024-06-14 12:53] LABS: Estimated Average Glucose 100 mg/dL; Hemoglobin A1C 108.7418 umol/L; Hemoglobin A1c % 5.1 % (<6.0); Total Hemoglobin (HGBA1C) 3326.1066 umol/L
[2024-06-14 13:59] LABS: Vitamin D 25-OH Total 19.1 ng/mL (>30)
[2024-06-14 14:07] LABS: Folate 13.3 ng/mL (> or = 4.0); Vitamin B12 519 pg/mL (200-900)
[2024-06-19 12:37] LABS: Vitamin D 25-OH, D2 <4 ng/mL; Vitamin D 25-OH, D3 16 ng/mL; Vitamin D 25-OH, Total 16 ng/mL (30-100)
== END 2024-06-14 11:12 | disposition home or self-care (01) ==
LOC: HO.LAB 11:11
PROVIDERS: PCP Hospitalist; Visit Provider Nurse Practitioner Family
DX: R20.0 Anesthesia of skin (principal); R20.2 Paresthesia of skin; Z13.1 Encounter for screening for diabetes mellitus
CPT/HCPCS: 36415; 82306; 82607; 82746; 83036

== ENCOUNTER 2024-06-14 11:11 | Outpatient (AMB) | payer OTHER, MEDICAID, SELFPAY ==
--- NOTE | 2024-06-14 11:12 | MHC.OFFVIS ---
Vital Signs 06/14/24 11:17 Height 5 ft 1 in Weight 179 lb BMI 33.8 BP 139/81 Blood Pressure Location Rt brachial Position Sitting Respiration 18 Pulse 63 Pulse Source Pulse Oximeter Pulse Oximetry (%) 99 Oxygen Delivery Method Room Air Intake Visit Reasons: right sided numbness and tingling Intake Note: Neck pain-4/10 Back pain-5/10 Allergies No Known Allergies Allergy (Verified 07/26/22 12:36) HPI Comments Details: Patient presents today for follow for reocurrence of right sided intermittent upper and lower extremity numbness, tingling, headaches and right side cooler body temperatures than left side. She had similar on both sides of her body last year and responded well to Medrol dose Cesar. She notes this has been on and off since last year and has been more frequent for the past few weeks. She also has chronic low back pain with radiation into her right lower extremity. Patient has known bilateral sacralization of L5 vertebra and cervical degenerative disc disease with associated neck pain and muscle spasms. She has been recovering from recent upper respiratory illness with residual cough. COVID test was negative per patient. Denies any fever or chills, weakness, balance or gait issues, bladder or bowel dysfunction or saddle anesthesia. PRIOR: Patient presents today for follow up with worsening chronic low back pain and right leg numbness. Denies any recent trauma, injury or falls. Patient reports increased right leg numbness in her anterior thigh and griffin with intermittent tingling and numbness in her right big toe for several weeks but progressively worsening for the past 3 days. Prolonged standing or walking, bending increases her pain. It also interferes with her daily functioning and sleep. She has tried to manage her symptoms with gentle stretching and regular home exercise program, NSAIDs, Tylenol, cyclobenzaprine, heating pad, over the counter topical applications without any relief. Denies any fever, abdominal or groin pain, foot drop, bladder or bowel dysfunction or saddle anesthesia. PRIOR: Patient returns today for follow up visit with new symptoms of intermittent bilateral upper extremity numbness and tingling and worsening chronic daily headaches for the past 6 months. She reports headaches are moderate to severe in intensity and lasting over 15 days per month which significantly affect her daily functioning, activities and sleep. Patient was last seen in our office in July for lower back pain at which time we obtained pelvic xray and followed up with lumbar spine MRI which was reviewed with patient previously. She reports bilateral upper extremity numbness and tingling with associated dizziness, headaches and cold sensations in her hands were more prominent in her right arm since last week and these symptoms have been alternating between her left and right side this week. Denies any trauma, injury or falls. Pain described as constant daily aching, pressure, throbbing, and pulsating in front regions with associated dizziness, fatigue, muscle aches, intermittent neck stiffness and spasms, mood changes, sensitivity to light and noises, nausea, visual disturbances such as peripheral side vision sparkles and glitters with severe headaches. She reports her severe headaches are mostly right sided and stress or tension related headaches are bilateral. Patient denies being diagnosed with migraine headaches before. Patient has been trying to manage her headaches with Ibuprofen, Advil, muscle relaxants, deeming or turning bright lights off during the day or use dark room for severe headaches with minimal improvement. She denies smoking tobacco or taking marijuana, does not drink red wine but occasionally will have white or Ramonita rogelio, rarely eats cheese, and regularly eats chocolate. She notes that muscle relaxant improves her sleep and she maintains adequate hydration daily in combination with daily physical activity. Patient denies any fever, chills, malaise, chest pain or pressure, shortness of breaths, vomiting, abdominal pain, bowel or bladder dysfunction, or saddle anesthesia. PRIOR: Patient is a very pleasant 36 year old female/male who presents to the office with chronic back pain. Her pain is mostly axial but reports pain radiates posteriorly down to her buttocks and to her left lower extremity with occasional numbness and tingling. The pain started about 1.5 years ago without any inciting event. Denies previous back surgery or injections, trauma, injury, or fall. She has tried Tylenol, Ibuprofen, diclofenac and heating pads with continued symptoms. Movements and prolong walking or standing exacerbate her pain. Pain is interfering with her sleep, activities of daily living, mood, quality of life and she cannot function normally. She describes her pain as stabbing, pinching, tugging, pulling, hurting, piercing, and squeezing. She has not tried physical therapy, chiropractic manipulation, massage, acupuncture or TENS unit in the past but currently cannot tolerate formal PT due to increasing and significant pain. She reports she usually maintains active lifestyle with daily walking and HEP. Patient denies any fever, abdominal or groin pain, dizziness, malaise, bladder/bowel dysfunction or saddle anesthesia. She reports intermittent weakness. Patient had recent imaging of her pelvis that showed bilateral sacralization of L5 vertebra. [facility] Medical History Migraine without aura, intractable, without status migrainosus Sacralization of lumbar vertebra History of anemia Surgical History Hx laparoscopic cholecystectomy (~2006) Social History Housing: House Patient Tobacco Use Status: Never used Tobacco e-Cigarette/Vaping Use: Never Used Female Reproductive History Menstrual Age of Menarche: 14 Review of Systems Const All systems reviewed & are unremarkable except as noted in HPI and below ENT Reports Normal hearing present Neuro Reports Normal hearing present, Denies Abnormal speech present, Reports confusion and Reports Sensory deficit (Neuro) (decreased sensation right knee down to right lower leg lateral/anterior) Psych Reports confusion Physical Exam Const General: cooperative, no acute distress, alert, awake and confusion; No diaphoretic Orientation/consciousness: patient oriented x3 and confusion Limitations: no limitations HEENT Head: Yes normal to inspection, Yes No palpable skull fracture present, Yes normocephalic and No occipital foramen tenderness Ears: hearing grossly normal bilaterally General nose exam: No nasal discharge present Face and sinus: Yes normal facial exam, Yes sinuses nontender and Yes face symmetric Eyes General: appearance normal, both eyes and all related structures Visual Lim: normal visual lim by confrontation Alignment and Position: alignment normal Periorbital: periorbital findings normal Pupils: Equal, round and reactive pupils present EOM: EOMs intact bilaterally Neck Neck: Yes normal visual inspection, Yes no lymphadenopathy, Yes supple, No anterior neck swelling, Yes no JVD, No prominent supraclavicular fat pad and Yes prominent dorsocervical fat pad Resp Effort & Inspection: normal respiratory effort, able to speak in complete sentences, no audible wheezes, Actively coughing (non-productive, intermittent), no respiratory distress and symmetric chest movement Cardio Jugular venous distension: no JVD Rate: regular rate Peripheral pulses: Peripheral pulses 2+ throughout GI Inspection: Yes normal to inspection and No distended Palpation (GI): Soft to palpation and nontender General: Yes no CVA tenderness Back/Spine/Pelvis Other: Lumbar flexion is intact and does not reproduce pain. Lumbar extension reproduces mild to moderate pain low back pain and increased right leg numbness. Positive facet loading bilaterally. Back: no CVA tenderness Cervical Spine: normal cervical lordosis, cervical muscular tenderness, pain with cervical ROM (limited rotation to the left and flexion), No Cervical spine scars present, No Cervical spine tenderness and No step off deformity Thoracic/Lumbar Spine: thoracic and lumbar spine normal to inspection, No Thoracic/lumbar spine scar(s), Lasegue's sign negative, straight leg raise negative bilaterally, pain with thoraco-lumbar ROM, paraspinal muscle tenderness, No thoracic spinal tenderness and lumbar spinal tenderness (L4-S1) Pelvis: no buttock tenderness Sacroiliac joints: bilaterally tender to palpation Skin General skin exam: no rashes or lesions noted Neuro General: patient oriented x3, tone normal, moves all extremities, Normal light touch and pain sensation (cooler sensation in right hand and right foot), no focal motor deficits, CN's II-XI intact bilaterally and confusion Cranial nerves: Yes CN's II-XII intact bilaterally, Yes Equal, round and reactive pupils present, Yes Bilaterally intact EOM present and Yes Normal hearing present Cognition (Neuro): normal cognition Speech: No Abnormal speech present Gait exam (Neuro): Normal gait present and No Assistive device used Motor exam (neuro): 5/5 motor strength present throughout, no tremor noted, Normal motor muscle tone present throughout and Motor abnormalities not present Sensory Exam: Sensory deficit (Neuro) (decreased sensation right knee down to right lower leg lateral/anterior) Extrem General: Yes capillary refill normal, Yes no clubbing, cyanosis or edema and Yes no calf tenderness Psych Appearance: grossly normal Mental Status: mental status grossly normal Speech and movement: Normal speech and movement present and Clear speech present Affect: normal affect Attitude: cooperative Thought process: Normal thought process present Thought content: Normal thought content present Insight: Good insight present (Psych) Judgement: Good judgement present (Psych) Results Reviewed Results Reviewed: XR PELVIS 07/27/21 CLINICAL INFORMATION: Low back pain? COMPARISON: None? TECHNIQUE: AP view of the pelvis. FINDINGS: There is bilateral sacralization of L5 vertebra visualized bilateral hip joints, SI joints and the pelvic bones are unremarkable. There is a IUD noted in the pelvis. The soft tissues are normal.? IMPRESSION: Bilateral sacralization of L5 vertebra. No other bony abnormality seen. MR LUMBAR SPINE WITHOUT CONTRAST 06/09/23 CLINICAL INFORMATION: Spondylosis with radiculopathy. COMPARISON: Lumbar spine radiographs 07/25/2022. Lumbar spine MRI 08/10/2021. TECHNIQUE: MRI of the lumbar spine was obtained using routine sequences without contrast. FINDINGS: There is transitional spinal anatomy at the lumbosacral junction with lumbarization of the S1 vertebral segment. Alignment is normal. Vertebral body heights are preserved. No acute bone marrow signal changes. There is mild disc desiccation at multiple levels without substantial loss of intervertebral disc height. The tip of the conus medullaris is located at L2-L3. No mass effect on the conus. Visualized distal cord signal intensity is normal. At L1-L2, L2-L3, L3-L4, and L4-L5 the annular contours are normal. No canal or neuroforaminal compromise at these levels. At L5-S1 there is a slightly bulging disc. No canal stenosis. Partial effacement of the perineural fat without overt compression of the L5 foraminal nerve roots. At S1-S2 is no canal or neuroforaminal compromise. Limited visualization of the retroperitoneal anatomy reveals no abnormal finding. Psoas and paraspinal muscle groups are symmetric. IMPRESSION: There is transitional spinal anatomy at the lumbosacral junction with lumbarization of the S1 vertebral segment. There is a slightly bulging disc at L5-S1. Otherwise unremarkable examination. No canal stenosis. No mass effect on the traversing or foraminal nerve roots. XR CERVICAL SPINE 11/04/23 CLINICAL INFORMATION: Spondylosis without myelopathy or radiculopathy, cervical region COMPARISON: None available. TECHNIQUE: 5 views of the cervical spine, inclusive of oblique views, were obtained. FINDINGS: There is straightening of the usual cervical lordosis which can be seen with muscle spasm or be due to patient positioning. No intrinsic bony abnormality. The disc heights and neural foramina are well maintained. The endplates and posterior elements are normal. No fracture or subluxation. The surrounding prevertebral soft tissues are unremarkable. IMPRESSION: There is straightening of the usual cervical lordosis which can be seen with muscle spasm or be due to patient positioning. Assessment & Plan Assessment & Plan (1) Low back pain: Code(s): M54.50 - Low back pain, unspecified Category: Medical (2) Sacralization of lumbar vertebra: Code(s): Q76.49 - Other congenital malformations of spine, not associated with scoliosis Category: Medical (3) Lumbosacral spondylosis with radiculopathy: Code(s): M47.27 - Other spondylosis with radiculopathy, lumbosacral region Category: Medical (4) Right upper extremity numbness: Code(s): R20.0 - Anesthesia of skin Category: Medical (5) Migraine without aura, intractable, without status migrainosus: Code(s): G43.019 - Migraine without aura, intractable, without status migrainosus Category: Medical (6) Numbness and tingling of right leg: Code(s): R20.0 - Anesthesia of skin; R20.2 - Paresthesia of skin Category: Medical (7) Cervical spondylosis: Code(s): M47.812 - Spondylosis without myelopathy or radiculopathy, cervical region Category: Medical Plan Patient with right sided numbness, tingling and parasthesias reoccurrence with history of migraines, neck and low back pain. She also experiences cooler body sensations in her right hand and right foot than left side. We will proceed with brain MRI and Neurodiagnostic studies, check lab work for pre-diabetes and vitamin deficiencies. Medrol Cesar was sent earlier today to patient's pharmacy as she had good relief last year. Patient is aware to monitor for any side effects. All questions and concerns have been answered and patient agreed with the plan. Follow up for EMG/MRI/lab results and sooner as needed. Coding Level of Care Code Est Pt Level 4 (43544) Diagnoses Low back pain M54.50 Sacralization of lumbar vertebra Q76.49 Lumbosacral spondylosis with radiculopathy M47.27 Right upper extremity numbness R20.0 Migraine without aura, intractable, without status migrainosus G43.019 Numbness and tingling of right leg R20.0; R20.2 Cervical spondylosis M47.812
[2024-06-14 11:17] VITALS: BP 139/81; PULSE 63; RESP 18; O2SAT 99; BMI 33.8
== END 2024-06-14 11:42 | disposition home or self-care (01) ==
LOC: HO.PMC 11:11
PROVIDERS: PCP Hospitalist; Visit Provider Nurse Practitioner Family
DX: M54.50 Low back pain, unspecified (principal); Q76.49 Other congenital malformations of spine, not associated with scoliosis; M47.27 Other spondylosis with radiculopathy, lumbosacral region; R20.0 Anesthesia of skin; G43.019 Migraine without aura, intractable, without status migrainosus; R20.2 Paresthesia of skin; M47.812 Spondylosis without myelopathy or radiculopathy, cervical region
CPT/HCPCS: 99214

== ENCOUNTER → 2024-06-20 15:08 | Outpatient (BNV) | payer OTHER, MEDICAID, SELFPAY | PROVIDERS: PCP Hospitalist; Visit Provider Radiology Diagnostic Radiology | DX: G43.019 Migraine without aura, intractable, without status migrainosus (principal) | CPT/HCPCS: 70553 ==

== ENCOUNTER 2024-06-20 15:13 | Outpatient (REF) | payer OTHER, MEDICAID, SELFPAY ==
--- NOTE | ~2024-06-20 | MR_ITS ---
EXAMINATION: MR BRAIN WITHOUT THEN WITH IV CONTRAST HISTORY: G43.019 - Migraine without aura, intractable, without status migrainosus TECHNIQUE: Sagittal T1, and axial T1, FLAIR, T2, gradient echo, and diffusion weighted MR images of the brain were obtained. In addition, sagittal FLAIR images of the brain were obtained. Subsequently, axial, and coronal T1-weighted images were obtained after the administration of intravenous gadolinium. 8.5 mL Gadavist was administered. COMPARISON: Comparison is made with the prior examination dated 02/19/2022. FINDINGS: The brain parenchyma is unremarkable, demonstrating normal alcazar/white differentiation. No foci of abnormal signal intensity are identified. The ventricular system is normal in size and configuration. There is no mass effect or midline shift. No intra or extra-axial fluid collections are identified. There are no foci of restricted diffusion. There is no abnormal contrast enhancement. Normal vascular flow voids are noted in the basilar and carotid arteries. There is mild mucosal thickening in the bilateral maxillary sinuses. MR/MR head/brain wo/w con IMPRESSION: Unremarkable MRI of the brain without and with contrast. Electronically signed by: Alexys Avila MD 06/21/2024 08:07 AM [facility]
[2024-06-20] MEDS: gadobutroL 10 ML VIAL IVPUSH (15:59)
== END 2024-06-20 15:14 | disposition home or self-care (01) ==
LOC: HO.MRI 15:13
PROVIDERS: PCP Hospitalist; Visit Provider Nurse Practitioner Family
DX: G43.019 Migraine without aura, intractable, without status migrainosus (principal); R20.0 Anesthesia of skin; R20.2 Paresthesia of skin
CPT/HCPCS: 70553; A9585

== ENCOUNTER 2024-08-18 12:49 | Outpatient (REF) | payer OTHER, SELFPAY ==
--- NOTE | 2024-08-18 12:53 | EMG_ITS ---
Chief complaint: Random episodes of right hand numbness (elbow to hand) and right leg numbness (knee downward). Could be associated with neck pain or back pain. Reason for referral: Evaluate for Carpal Tunnel Syndrome, peroneal neuropathy, radiculopathy Referred by: Fay Restrepo NP' Procedure done: Right upper and lower extremity NCS/EMG Precautions and/or limitations: None The limb temperature was monitored continuously and remained between 32-36 degrees C during the performance of the NCS. Nerve Conduction Studies Anti Sensory Summary Table ?Stim Site NR Onset (ms) Norm Onset (ms) Peak (ms) Norm Peak (ms) O-P Amp (?V) Norm O-P Amp Site1 Site2 Delta-0 (ms) Dist (cm) Kolton (m/s) Norm Kolton (m/s) Right Median Anti Sensory (2nd Digit) Wrist ? 2.1 3.0 <3.6 57.2 >10 Wrist 2nd Digit 2.1 14.0 67 Right Sural Anti Sensory (Lat Mall) Calf ? 2.6 3.3 <4.0 12.2 >5.0 Calf Lat Mall 2.6 14.0 54 Right Ulnar Anti Sensory (5th Digit) Wrist ? 2.9 3.3 <3.7 19.1 >15.0 Wrist 5th Digit 2.9 14.0 48 Motor Summary Table ?Stim Site NR Onset (ms) Norm Onset (ms) O-P Amp (mV) Norm O-P Amp iAmp (mV) Amp (1st) (%) Site1 Site2 Delta-0 (ms) Dist (cm) Kolton (m/s) Norm Kolton (m/s) Right Median Motor (Abd Poll Brev) Wrist ? 3.2 <3.9 10.7 >4.5 12.2 100.0 Elbow Wrist 2.8 17.0 61 >45 Elbow ? 6.0 12.6 14.3 117.8 Right Peroneal Motor (Ext Dig Brev) Ankle ? 4.0 <4.0 4.8 >2.5 6.0 100.0 Ankle Ext Dig Brev 4.0 0.0 B Fib ? 8.8 6.7 8.8 139.6 B Fib Ankle 4.8 28.0 58 >40 Poplt ? 9.7 6.4 8.7 133.3 Poplt B Fib 0.9 7.0 78 >40 Right Tibial Motor (Abd Irvin Brev) Ankle ? 3.1 <5 13.2 >2.5 18.9 100.0 Ankle Abd Irvin Brev 3.1 0.0 Knee ? 10.0 8.0 11.8 60.6 Knee Ankle 6.9 37.0 54 >40 Right Ulnar Motor (Abd Dig Minimi) Wrist ? 2.7 <3.0 8.7 >5 10.9 100.0 B Elbow Wrist 2.5 16.0 64 >45 B Elbow ? 5.2 8.1 10.2 93.1 A Elbow B Elbow 1.1 10.0 91 >45 A Elbow ? 6.3 7.2 9.0 82.8 Comparison Summary Table ?Stim Site NR Peak (ms) Norm Peak (ms) P-T Amp (?V) Site1 Site2 Delta-P (ms) Norm Delta (ms) Right Median/Radial Dig I Comparison (Digit 1 - 10cm) Median ? 2.5 <2.9 76.4 Median Radial 0.1 Radial ? 2.6 <2.8 44.6 EMG ?Side Muscle Nerve Root Ins Act Fibs Psw Amp Dur Poly Recrt Int Pat Comment Right 1stDorInt Ulnar C8-T1 Nml Nml Nml Nml Nml 0 Nml Complete Right FlexCarRad Median C6-7 Nml Nml Nml Nml Nml 0 Nml Complete Right Biceps Musculocut C5-6 Nml Nml Nml Nml Nml 0 Nml Complete Right Triceps Radial C6-7-8 Nml Nml Nml Nml Nml 0 Nml Complete Right Deltoid Axillary C5-6 Nml Nml Nml Nml Nml 0 Nml Complete Right AbdHallucis MedPlantar S1-2 Nml Nml Nml Nml Nml 0 Nml Complete Right AntTibialis Dp Br Peron L4-5 Nml Nml Nml Nml Nml 0 Nml Complete Right PostTibialis Tibial L5, S1 Nml Nml Nml Nml Nml 0 Nml Complete Right MedGastroc Tibial S1-2 Nml Nml Nml Nml Nml 0 Nml Complete Right VastusMed Femoral L2-4 Nml Nml Nml Nml Nml 0 Nml Complete Paraspinal EMG ?Side Muscle Nerve Root Ins Act Fibs Psw Comment Right Lumbar Upper Rami Nml Nml Nml Right Lumbar Mid Rami Nml Nml Nml Right Lumbar Lower Rami Nml Nml Nml FINDINGS: All motor and sensory nerves tested showed normal latencies, amplitudes and conduction velocities. Concentric needle EMG was performed in selected muscles of the right upper and lower extremities, right lumbar paraspinals. Study did not reveal signs of electric abnormalities as shown in the table above. IMPRESSION: 1. This is a normal study. 2. There is no electrodiagnostic evidence for median neuropathy, ulnar neuropathy, brachial plexopathy, cervical radiculopathy, peroneal neuropathy, tibial neuropathy, lumbosacral plexopathy, lumbar radiculopathy, or peripheral neuropathy. Thank you for your kind referral. Ramonita Mathew MD, ROB Board Certified, [place] [employer] and [employer] (ABPMR) Board Certified, [place] [employer] Electro[employer]ostic [employer] (ABEM) CODIN [id number] x 2 MTDD
== END 2024-08-18 12:50 | disposition home or self-care (01) ==
LOC: HO.NEURO 12:49
PROVIDERS: PCP Hospitalist; Visit Provider Nurse Practitioner Family
DX: R20.0 Anesthesia of skin (principal); R20.2 Paresthesia of skin
CPT/HCPCS: 95886; 95910

== ENCOUNTER → 2024-08-18 12:53 | Outpatient (BNV) | payer OTHER, SELFPAY | PROVIDERS: PCP Hospitalist; Visit Provider Physical Medicine & Rehabilitation | DX: R20.0 Anesthesia of skin (principal); R20.2 Paresthesia of skin | CPT/HCPCS: 95886; 95910 ==

== ENCOUNTER 2024-10-28 11:49 | Outpatient (REF) | payer OTHER, SELFPAY ==
--- NOTE | ~2024-10-28 | XR_ITS ---
CLINICAL HISTORY: M54.50 - Low back pain, unspecified 7 views lumbar spine Comparison: None Findings: Normal alignment. Alignment is maintained with lateral flexion and extension No acute fractures or dislocation. No significant degenerative change. IMPRESSION: No acute findings. This document has been electronically signed by: Slava Bowers MD on 10/29/2024 09:37:12
== END 2024-10-28 11:50 | disposition home or self-care (01) ==
LOC: HO.XRAY 11:49
PROVIDERS: Visit Provider Nurse Practitioner Family
DX: M51.360 Other intervertebral disc degeneration, lumbar region with discogenic back pain only (principal); Q76.49 Other congenital malformations of spine, not associated with scoliosis
CPT/HCPCS: 72114

== ENCOUNTER → 2024-10-28 11:51 | Outpatient (BNV) | payer OTHER, SELFPAY | PROVIDERS: Visit Provider Specialist | DX: M54.50 Low back pain, unspecified (principal) | CPT/HCPCS: 72114 ==

== ENCOUNTER 2025-03-07 11:43 | Outpatient (REF) | payer OTHER, SELFPAY ==
--- NOTE | ~2025-03-07 | XR_ITS ---
EXAMINATION: XR CERVICAL SPINE CLINICAL INFORMATION: M54.2 - Cervicalgia COMPARISON: X-ray 11/04/2023 TECHNIQUE: 5 views FINDINGS: Straightening of the cervical curvature. No evidence of acute fracture or spondylolisthesis. Predens space is maintained. No prevertebral soft tissue swelling. Vertebral body heights are maintained. Disc spaces are relatively maintained. The visualized neural foramen grossly appear patent. Lung apices are clear. XR/XR cervical spine 4V IMPRESSION: No radiographic evidence of acute osseous findings. Electronically signed by: Sam Syed MD 03/07/2025 12:23 PM EDT
--- NOTE | ~2025-03-07 | XR_ITS ---
EXAMINATION: XR SHOULDER, RIGHT CLINICAL INFORMATION: M25.511 - Pain in right shoulder COMPARISON: None available. TECHNIQUE: AP external rotation, Grashey, scapular Y, and axillary views of the right shoulder. FINDINGS: No fracture. Glenohumeral and acromioclavicular alignment is anatomic with normal joint space. No abnormal soft tissue calcifications. XR/XR shoulder RT min 2V IMPRESSION: No evidence of acute osseous findings. Electronically signed by: Sam Syed MD 03/07/2025 12:13 PM EDT
--- OUTSIDE RECORDS SUMMARY | 2025-03-07 14:17 | XMS_ITS | Clinical Summary ---
Author Organization [address] Building Address [address] [place] [phone] Phone Care Team Providers Care Wire Spinner Name Role Phone Rogelio Barkley MD Primary Care Provider Unavaila ble Surgical History Surgery Date Site/Laterality Comments CHOLECYSTECTOMY 09/2007 PROCEDURE: LAPAROSCOPY, CHOLECYSTECTOMY Medical History Medical History Date Comments Family hx-breast malignancy 11/01/2011 DX:F amily hx-breast malignancy Post traumatic stress disorder (PTSD) 11/01/2011 DX:Post traumatic stress disorder (PTSD) Thyroid nodule DX:Thyroid nodul e Family History Medical History Relation Name Comments Breast cancer Aunt maternal Cataracts Brother Breast cancer Maternal Grandmother Breast cancer Mother Strabismus Mother Cataracts Paternal Grandfather Hypertension Paternal Grandfather Cataracts Paternal Grandmother Colon cancer Paternal Grandmother Blindness Neg Hx Glaucoma Neg Hx Macular degeneration Neg Hx Relation Name Status Comments Aunt Brother Alive x3 healthy Father Alive Healthy Maternal Grandmother Alive Mother Alive Paternal Grandfather Alive Paternal Grandmother Alive Sister Alive x1 healthy Social History Tobacco Use Types Packs/Day Years Used Date Smoking Tobacco: Never Smokeless Tobacco: Never Alcohol Use Standard Drinks/Week Comments Yes 0 (1 standard drink = 0.6 oz pur e alcohol) Comments Unknown Sex and Gender Information Value Date Recorded Sex Assigned at Not on file Legal Sex Female 7:14 PM EST Gender Identity Not on file Sexual Orientation Not on file Obstetrics History Last Filed Vital Signs Vital Sign Reading Time Taken Comments Blood Pressure - - Pulse 69 07/16/2023 11:20 AM EST Temperature - - Respiratory Rate - - Oxygen Saturation - - Inhaled Oxygen Concentration - - Weight 80.3 kg (177 lb) 07/16/2023 11:20 AM EST Height - - Body Mass Index - - Plan of Treatment Upcoming Encounters Date Type Department Care Team (Late st Contact Info) Description 05/18/2025 10:00 AM EST Office Visit Obstetrics and Gynecology - [facility] [address] [place] [phone] Harper Soliman, [facility] [address] [place] [address] Health Maintenance Due Date Last Done Comments Hepatitis B Vaccines (1 of 3 - 19+ 3-dose series) 2005 DTaP,Tdap,and Td Vaccines (2 - Td or Tdap) 04/18/2017 04/18/2007 HIV Screening 05/04/2022 Hepatitis C Screening 05/04/2022 Social Influencers of Health Screening 05/04/2022 Depression Screening 06/02/2024 COVID-19 Vaccine ( - 2023-2 5 season) 2025 Influenza Vaccine (#1) 2025 Cervical Cancer Screening: P ap Smear 07/16/2026 07/16/2023, 11/25/2018 RSV Immunization Adult Patients (1 - 1-dose 75+ series) 2061 HPV Vaccines Completed 02/18/2012, 10/08/2011, 08/07/2011 HIB Vaccines Aged Out No longer eligi ble based on patient's age to complete this topic Hepatitis A Vaccines Aged Out No long er eligible based on patient's age to complete this topic IPV Vaccines Aged Out No longer eligi ble based on patient's age to complete this topic MMR Vaccines Aged Out No longer eligi ble based on patient's age to complete this topic Meningococcal ACWY Vaccine Aged Out N o longer eligible based on patient's age to complete this topic Meningococcal B Vaccine Aged Out No l onger eligible based on patient's age to complete this topic Pneumococcal Vaccine: Pediatrics (0 to 5 Years) and At-Risk Patients (6 to 49 Years) Aged Out No longer eligible b ased on patient's age to complete this topic RSV Immunization Patients Under 20 months Aged Out No longer eligible b ased on patient's age to complete this topic Varicella Vaccines Aged Out No longer eligible based on patient's age to complete this topic Procedures Procedure Name Priority Date/Time Associated Diagnosis Comments PAP SMEAR Routine 07/16/2023 from Last 3 Months or Most Recently Relevant to Health Maintenance Results * Pap smear (07/16/2023) 07/16/2023 Narrative HISTORICAL TESTING LAB RESULTING AGENCY - 07/28/2023 6:36 AM EST [id number] THINPREP PAP, IMAGED: NEGATIVE FOR SQUAMOUS INTRAEPITHELIAL LESION AND MALIGNANCY . FUNGAL ORGANISMS MORPHOLOGICALLY CONSISTENT WITH LUISANA SPP. CHARLES ATKINS , ISAIAS(ASCP) (CASE ELECTRONICALLY SIGNED 07 26 2023) RESULT OF APTIMA HIGH RISK HPV ASSAY: HIGH RISK HPV: NEGATIVE (SEROTYPES 16,18,31,33,35,39,45,51,52,56,58,59,66,68) COMPLETED ON 2023-07-18 ADEQUACY: SATISFACTORY ENDOCERVICAL/TRANSFORMATION ZONE COMPONENT PRESENT. SOURCE: THINPREP PAP HPV ANY DX: REFLEX 16 AND 18, CERVICAL, IMAGED CLINICAL INFORMATION: HPV ANY DIAGNOSIS. HORMONES, PAP HX NEGATIVE, [Z01.419] us Kaycee Crowe [facility] LAB CYTOLOGY ORDERABLES Final Result HISTORICAL TESTING LAB RESULTING AGENCY from Last 3 Months or Most Recently Relevant to Health Maintenance Insurance [facility] Care Teams Wire Spinner Relationship Specialty Start Date End Date Rogelio Barkley MD PCP - General Internal Medicine 10/24/11
== END 2025-03-07 11:44 | disposition home or self-care (01) ==
LOC: HO.XRAY 11:43
PROVIDERS: PCP Nurse Practitioner Family; Visit Provider Nurse Practitioner Family
DX: M25.511 Pain in right shoulder (principal); M54.2 Cervicalgia
CPT/HCPCS: 72050; 73030

== ENCOUNTER → 2025-03-07 11:47 | Outpatient (BNV) | payer OTHER, SELFPAY | PROVIDERS: PCP Nurse Practitioner Family; Visit Provider Radiology Diagnostic Ultrasound | DX: M54.2 Cervicalgia (principal); M25.511 Pain in right shoulder | CPT/HCPCS: 72050; 73030 ==

== ENCOUNTER → 2025-03-24 07:14 | Outpatient (BNV) | payer OTHER, SELFPAY | PROVIDERS: PCP Nurse Practitioner Family; Visit Provider Radiology Diagnostic Ultrasound | DX: M25.511 Pain in right shoulder (principal) | CPT/HCPCS: 73221 ==

== ENCOUNTER 2025-03-24 07:16 | Outpatient (REF) | payer OTHER, SELFPAY ==
--- NOTE | ~2025-03-24 | MR_ITS ---
EXAMINATION: MR SHOULDER WITHOUT CONTRAST, RIGHT CLINICAL INFORMATION: Shoulder pain COMPARISON: X-ray 03/07/2025 TECHNIQUE: MRI of the shoulder without contrast was performed on a high-field scanner. FINDINGS: ROTATOR CUFF: Supraspinatus: Mild tendinosis Infraspinatus: Mild tendinosis Teres minor: Intact Subscapularis: Intact No muscle atrophy or fatty infiltration. BICEPS: Intact CORACOACROMIAL ARCH: The undersurface of the acromion is curved with no subacromial spur. The acromioclavicular joint is normal. LABRUM/CAPSULE: T2 signal in the base of the posterior labrum, could represent undisplaced tear. Inferior capsule is intact GLENOHUMERAL JOINT/MARROW: There is edema in the greater tuberosity, presumably reflecting osseous contusion.. Small focus of linear configuration of signal changes, could represent a small undisplaced fracture/trabecular microfracture. No aggressive marrow replacing lesion. No significant effusion. MR/MR shoulder RT wo con IMPRESSION: * Mild supraspinatus and infraspinatus tendinosis. No measurable tendon tear or retraction. * Posterior labral findings could represent an undisplaced tear. * Edema in the greater tuberosity presumably reflecting osseous contusion. Possible small undisplaced fracture/trabecular microfracture. Electronically signed by: Sam Syed MD 03/24/2025 08:39 AM EDT
--- OUTSIDE RECORDS SUMMARY | 2025-03-24 07:19 | XMS_ITS | Clinical Summary ---
Author Organization [address] Building Address [address] [place] [phone] Phone Care Team Providers Care C++ Quant Developer Name Role Phone Rogelio Barkley MD Primary [...] EST Office Visit Obstetrics and Gynecology - [facility] [place] [address] [place] [phone] Harper Soliman, [facility] [address] [place] [address] Health Maintenance Due Date Last [...] RESULTING AGENCY - 07/28/2023 6:36 AM EST [id number] THINPREP PAP, IMAGED: NEGATIVE FOR SQUAMOUS INTRAEPITHELIAL [...] PAP HX NEGATIVE, [Z01.419] us Kaycee Crowe [facility] LAB CYTOLOGY ORDERABLES Final Result HISTORICAL TESTING LAB RESULTING AGENCY from Last 3 Months or Most Recently Relevant to Health Maintenance Insurance [facility] Care Teams C++ Quant Developer Relationship Specialty Start Date End Date Rogelio Barkley MD PCP - General Internal Medicine 10/24/11
== END 2025-03-24 07:17 | disposition home or self-care (01) ==
LOC: HO.MRI 07:16
PROVIDERS: PCP Nurse Practitioner Family; Visit Provider Nurse Practitioner Family
DX: M25.511 Pain in right shoulder (principal); M75.81 Other shoulder lesions, right shoulder
CPT/HCPCS: 73221